=== PATIENT | female | born 1995 | race Caucasian/White ===

== ENCOUNTER 2019-02-03 15:23 | Outpatient (CLI) | payer MEDICAID ==
[~2019-02-03] VITALS: Ht 162.6 cm; Wt 77.7 kg
[~2019-02-03 15:23] MED LIST: IBUP-1542 PO; PREN-93 PO
[2019-02-03 15:31] VITALS: Ht 162.6 cm; Wt 77.7 kg
== END 2019-02-03 18:14 | disposition home or self-care (01) ==
LOC: OBT 15:23 → L-D 15:24 → OBT 18:14
PROVIDERS: ATTEND Obstetrics & Gynecology
DX: O36.5930 Maternal care for other known or suspected poor fetal growth, third trimester, not applicable or unspecified (principal); Z3A.38 38 weeks gestation of pregnancy
CPT/HCPCS: 76815; 76818; 80053; 81003; 84560; 85025; 85384; 85610; 85730